=== PATIENT | female | born 1935 | race Asian ===

== ENCOUNTER 2016-12-22 00:07 | Day surgery (SDC) | payer MEDICARE, OTHER ==
[2016-12-22] VITALS (8 sets, daily range): BP systolic 118–143; BP diastolic 48–73; PULSE 78–110; RESP 16–25; O2SAT 95–99
[~2016-12-22] VITALS: Ht 149.9 cm; Wt 45.0 kg
[~2016-12-22 00:07] MED LIST: ACET325C PO; ADV250INH IH; ASPI-973 PO; CALC-140 PO; HYDR-4003 PO; OMEG1CAP56 PO; TIOT18CA3 IH
[2016-12-22] MEDS ORDERED: OXYQ113.2 (09:44)
[2016-12-22] MEDS ORDERED: ESTR10TA (09:44)
[2016-12-22] MEDS ORDERED: HALO5AMP3 IJ (09:44)
[2016-12-22] MEDS ORDERED: MORP100S5 PO (09:44)
[2016-12-22] MEDS ORDERED: LORA2ORA4 PO (09:44)
[2016-12-22] MEDS ORDERED: IPRA3AMP IH (09:44)
[2016-12-22] MEDS ORDERED: ALBU0.63 INHALATION (09:44)
[2016-12-22] MEDS ORDERED: Heparin 10,000 Unit/1,000 mL NS Premix IV ONE (11:13)
--- NOTE | 2016-12-22 11:55 | DRSVH ---
PROCEDURE: X-RAY CHEST ONE VIEW, PORTABLE ([id number]) INDICATIONS: 81 year-old female with right lung mass and pleural effusion. TECHNIQUE: One view of the chest was acquired. COMPARISON: December 18, 2016 AP chest at [facility]. FINDINGS: Surgical changes and devices: None. Lungs and pleura: Moderate basal right pleural effusion has increased in size. There is persistent lo culated superior right pleural fluid. No pneumothorax. Medial right lung and hilar region mass is aga in noted. Mediastinum: Mediastinal contours appear normal. Heart size is normal. There is aortic atheroscler osis. Bones and chest wall: No suspicious bony lesions. Overlying soft tissues appear unremarkable. IMPRESSION: Moderate basal right pleural effusion has reaccumulated since December 18, 2016, presumably ma lignant in the setting of right lung and hilar region mass. Dictated by: Uvaldo Westfall M.D. on 12/22/2016 at 11:50 Approved by: Uvaldo Westfall M.D. on 12/22/2016 at 11:54
[2016-12-22] MEDS ORDERED: fentaNYL-PF 50 mCg/mL 2 mL Inj ONE (12:56)
--- NOTE | 2016-12-22 15:46 | DRSVH ---
PROCEDURE: PLEURAL CATH PLACEMENT (P) INDICATIONS: Ca COMPARISON: None. Fluoroscopy time: 0.5 minutes The indications, alternatives, benefits, risks, and complications of the procedure were explained to the patient and her daughters. Informed written consent was obtained and placed in the chart. The pa tient was brought to the angiography suite, and conscious sedation was administered intravenously by jail staff, while continuous cardiorespiratory monitoring was performed. Maximum sterile barrier technique was employed per standard protocol, including hand hygiene, cap, ma sk, sterile gown and gloves, and 2% chlorhexidine. Sterile ultrasound probe cover was also utilized. 1% lidocaine was used to anesthetize the skin over the area of interest. A subcutaneous tunnel was c reated along the right anterior chest wall. The Pleurx catheter was placed through the subcutaneous t unnel. Next, an 18 gauge needle was advanced into the pleural fluid collection under ultrasound robinson nce. An 035 wire was advanced to the outer stylet of the needle.The pleurotomy was dilated and a peel -away sheath was advanced over the wire into the pleural space. The inner stylette of the peel-away s sctoty was removed, and the catheter was advanced into the pleural space. The catheter was secured at the chest wall. The patient tolerated the procedure well. FINDINGS: Initial ultrasound demonstrates a large right pleural effusion. Final spot fluoroscopic calin ge demonstrates the Pleurx catheter within the right hemithorax. IMPRESSION: Status post ultrasound and fluoroscopic guidance for Pleurx catheter placement. Dictated by: Afshan Herbert M.D. on 12/22/2016 at 15:39 Approved by: Afshan Herbert M.D. on 12/22/2016 at 15:44
--- NOTE | 2016-12-22 16:02 | NUR ---
Pt discharged to home, via wheelchair, accompanied by family. Pt's VSS, Pleurx site CDI, pt sent home with two drainage bottles. Pt given all discharge instructions and family had no further questions at time of d/c.
== END 2016-12-22 23:59 | disposition home or self-care (01) ==
LOC: SOUO 00:07
PROVIDERS: ATTEND Radiology Vascular & Interventional Radiology
DX: C34.90 Malignant neoplasm of unspecified part of unspecified bronchus or lung (principal); J91.0 Malignant pleural effusion; C79.70 Secondary malignant neoplasm of unspecified adrenal gland
CPT/HCPCS: 32550; 71010; 75989; 99152; C1729; C1769; C1894; J1644; J2250; J3010